=== PATIENT | female | born 1970 | race Caucasian/White ===

== ENCOUNTER 2019-05-15 15:26 | Emergency (ER) | payer SELFPAY ==
[~2019-05-15] VITALS: Ht 160 cm; Wt 71.2 kg
[2019-05-15 15:30] VITALS: BP 128/89
--- NOTE | 2019-05-15 15:30 | NUR ---
Pt ambulated to bed 9.
--- NOTE | 2019-05-15 15:30 | NUR ---
48 Y/O F C/O PAINFUL URINATION 10/28, BLOOD IN THE URINE X1 DAY. PATIENT TOOK IBPROFEN YESTERDAY FOR PAIN. NO N/V OR FEVER. HX: MIGRAINE, SHINGLES NKA
--- NOTE | 2019-05-15 16:15 | NUR ---
Patient discharged with v/s stable. Written and verbal after care instructions given and explained. Patient alert, oriented and verbalized understanding of instructions. Ambulatory with steady gait. All questions addressed prior to discharge. ID band removed. Patient advised to follow up with PMD. Rx of CIPRO, MOTRIN, PYRIDIUM given. Patient educated on indication of medication including possible reaction and side effects. Opportunity to ask questions provided and answered.
== END 2019-05-15 16:15 | disposition home or self-care (01) ==
LOC: MED 15:26
DX: N39.0 Urinary tract infection, site not specified (principal); Z90.710 Acquired absence of both cervix and uterus; Z98.890 Other specified postprocedural states
CPT/HCPCS: 81002; 81025; 99283

== ENCOUNTER 2021-10-02 10:38 | Emergency (ER) | payer MEDICAID ==
[~2021-10-02] VITALS: Ht 160 cm; Wt 76.2 kg
[2021-10-02 10:45] VITALS: BP 145/89
--- NOTE | 2021-10-02 10:50 | NUR ---
PATIENT AMBULATED TO BED 9, STEADY GAIT
[2021-10-02] MEDS ORDERED: KETOROLAC 60 MG/2 ML VIAL IM ONE (11:00)
[2021-10-02] MEDS ORDERED: ONDANSETRON 4 MG ODT PO ONE (11:00)
[2021-10-02] MEDS ORDERED: ONDA8TAB87 PO (11:55)
[2021-10-02] MEDS ORDERED: ACET-8386 PO (11:55)
[2021-10-02] MEDS ORDERED: IBUP-2213 PO (11:55)
[2021-10-02 12:06] VITALS: BP 145/89
--- NOTE | 2021-10-02 12:06 | NUR ---
Patient discharged with v/s stable. Written and verbal after care instructions given and explained. Patient alert, oriented and verbalized understanding of instructions. Ambulatory with steady gait. All questions addressed prior to discharge. ID band removed. Patient advised to follow up with PMD. Rx of IBUPROFEN, ZOFRAN AND HYDROCODONE-ACETAMINOPHEN given. Patient educated on indication of medication including possible reaction and side effects. Opportunity to ask questions provided and answered.
== END 2021-10-02 12:06 | disposition home or self-care (01) ==
LOC: MED 10:38
DX: R10.11 Right upper quadrant pain (principal); R68.83 Chills (without fever); R11.0 Nausea; Z90.49 Acquired absence of other specified parts of digestive tract
CPT/HCPCS: 81002; 81025; 96372; 99283; J1885; Q0162